=== PATIENT | female | born 1985 | race Caucasian/White ===

== ENCOUNTER → 2021-04-12 | Outpatient (CLI) | payer BC ==
[2021-04-12 18:27] LABS: Basophils # (A) 0.01 X 10*3/uL (0.00-0.10); Basophils % (A) 0.2 %; Eosinophils # (A) 0.04 X 10*3/uL (0.04-0.35); HCT 37.1 % (37.2-46.3); Immature Grans, Automated 0.2 %; Lymphocytes # (A) 1.56 X 10*3/uL (0.90-5.00); Lymphocytes % (A) 38.4 %; MCH 29.6 pg (27.0-32.0); MCHC 32.3 g/dL (32.0-37.0); MCV 91.6 fL (80.0-97.0); Mean Platelet Volume 11.5 fL (9.5-12.2); Monocytes # (A) 0.25 X 10*3/uL (0.20-1.00); Monocytes % (A) 6.2 %; NRBC Per 100 WBC 0 /100 WBCS (0.0-0.0); Neutrophils # (A) 2.19 X 10*3/uL (1.80-7.70); Platelet Count 199 X 10*3/uL (140-440); RBC 4.05 X 10*6/uL (4.10-5.20); RDW 12.1 % (11.5-14.5); WBC 4.06 X 10*3/uL (4.50-10.00)
== END | disposition home or self-care (01) ==
LOC: LABPAT 11:41
PROVIDERS: ATTEND Obstetrics & Gynecology
DX: Z30.09 Encounter for other general counseling and advice on contraception (principal)
CPT/HCPCS: 85025

== ENCOUNTER 2021-04-27 07:52 | Day surgery (SDC) | payer BC ==
[2021-04-22 16:15] VITALS: BMI 25.7
[~2021-04-27 07:52] MED LIST: LACTATED RINGERS 1,000 ML IV SCH; LIDOCAINE 1% (10MG/ML) FOR IV START INTRADERMA PRN; ONDANSETRON 4 MG/2 ML VIAL IVP ONE; Pre Op ABX Message 1 EACH MISC MISCELLANE ONE; SCOPOLAMINE 1.5MG/72HR PATCH TRANSDERM ONE
[2021-04-27] MEDS ORDERED: LIDOCAINE 1% INJ 10MG/ML (20 ML MDV) ONE (09:05)
[2021-04-27] MEDS ORDERED: NEOSTIGMINE 1 MG/ML 10 ML VIAL ONE (09:05)
[2021-04-27] MEDS ORDERED: MIDAZOLAM 2 MG/2 ML VIAL ONE (09:05)
[2021-04-27] MEDS ORDERED: GLYCOPYRROLATE 0.2 MG/ML 2 ML VIAL ONE (09:05)
[2021-04-27] MEDS ORDERED: KETOROLAC 15 MG/ML 1 ML VIAL ONE (09:05)
[2021-04-27] MEDS ORDERED: fentaNYL (PF) 50 MCG/ML 2 ML AMP ONE (09:05)
[2021-04-27] MEDS ORDERED: PROPOFOL 10 MG/ML 20 ML VIAL IV ONE (09:05)
[2021-04-27] MEDS ORDERED: ROCURONIUM 10 MG/ML (5 ML VIAL) IV ONE (09:05)
[2021-04-27] MEDS ORDERED: MIDAZOLAM 2 MG/2 ML VIAL IVP ONE (09:07)
[2021-04-27] MEDS ORDERED: BUPIVACAIN-EPI 0.25%-1:200,000 30 ML VIAL SQ ONE ×2 (09:16→09:50)
--- NOTE | 2021-04-27 10:05 | P.OP ---
Date of Procedure: 04/27/21 Preoperative Diagnosis: Undesired fertility Postoperative Diagnosis: Normal-appearing female pelvic anatomy Procedure(s) Performed: Laparoscopic bilateral salpingectomy Anesthesia: RONEN Surgeon: Ju[facility] Coordinator #1: Christina Saeed Estimated Blood Loss (ml): 10 IV fluids (ml): 700 Urine output (ml): 200 Pathology: other (Bilateral fallopian tubes) Condition: stable Disposition: PACU Operative Findings: Normal-appearing ovaries bilaterally, no evidence of pelvic adhesions or endometriosis. Description of Procedure: Patient is brought to the operating suite where a general anesthetic is administered without difficulty. She's placed in the dorsal lithotomy position. The cervix, vagina, abdomen are all prepped and draped in usual sterile fashion. Urine hCG is negative. The appropriate timeout was performed to assure proper patient and procedural identification. Bladder is drained for approximately 200 mL of clear yellow urine utilizing a red Peter catheter. Speculum was placed into the vagina. Anterior lip of the cervix is grasped with an Allis clamp and this was attached to a small acorn cannula placed on the ectocervical os. Speculum is removed. Attention is now drawn to the abdominal cavity. An infraumbilical incision is made. Veress needle is placed and placement is checked with hanging drop technique. Abdomen is insufflated under low filling pressures of approximate 4-6 mmHg for a total of 3.8 L of CO2 gas. Veress needle is removed. Trochars placed and placement is atraumatic. Uterus is now tucked deep into the cavity. A second incision is made in the right lower quadrant and a second trocar is placed under direct visualization, atraumatic entry. A third incision is placed in the left lower quadrant, trocar is placed and again entry is atraumatic. The uterus is now placed and anteverted lateral traction. The right fallopian tube is grasped and stretched. The LigaSure is used across the mesal salpinx and the right fallopian tube is removed. Hemostasis is excellent. It is taken through the trocar. The same procedure is carried out contralaterally on the left fallopian tube. LigaSure is used through the mesal salpinx to the base of the tube and the tube is brought out through the trocar. Hemostasis is excellent. Bilateral ovaries are within normal limits to inspection. The CO2 gas was allowed to diffuse. The trochars are removed under direct visualization and the fascial defects are clean and dry. 4-0 undyed Monocryl is used in a subcuticular fashion to close the 3 small skin incisions. They are injected with a total of 10 mL of quarter percent Marcaine to aid in analgesia. The patient is given Toradol. Dressings are applied to the 3 small wounds. Instrumentation is removed from the vagina. Cervix is clean and dry. All sponge needle and enhancement counts are correct. Total estimated blood loss 10 mL's. Patient is brought back to the recovery room in excellent condition with stable vital signs including blood pressure 125/73, pulse 77. She will follow- up with me in the office in 2 weeks.
[2021-04-27] MEDS: fentaNYL (PF) 50 MCG/ML 2 ML AMP IV PRN ×2 (10:20→10:25)
[2021-04-27 10:23] VITALS: TEMP 98.6
[2021-04-27] MEDS ORDERED: MEPERIDINE 50 MG/ML SYRINGE IVP ONE ×2 (10:30→10:35)
[2021-04-27] MEDS ORDERED: LACTATED RINGERS 1,000 ML IV ONE ×2 (10:41)
[2021-04-27] MEDS ORDERED: HYDROcodone/APAP 5-325MG 1 EACH TAB ONE (12:21)
[2021-04-27] MEDS ORDERED: HYDROcodone/APAP 5-325MG 1 EACH TAB PO ONE (12:24)
[2021-04-27 12:26] VITALS: RESP 16
[2021-04-27 12:55] VITALS: BP 96/63; PULSE 74
== END 2021-04-27 13:05 | disposition home or self-care (01) ==
LOC: OR 07:52
PROVIDERS: ATTEND Obstetrics & Gynecology
DX: Z30.2 Encounter for sterilization (principal)
CPT/HCPCS: 58661; 81025; 88302; J2250; J2710; J2175; J2405; J2001; J3010; J1885; J2704

== ENCOUNTER → 2021-09-06 | Outpatient (CLI) | payer BC ==
[2021-09-06 22:40] LABS: Basophils # (A) 0.01 X 10*3/uL (0.00-0.10); Basophils % (A) 0.2 %; Eosinophils # (A) 0.06 X 10*3/uL (0.04-0.35); Eosinophils % (A) 1.2 %; HCT 36.8 % (37.2-46.3); HGB 11.6 g/dL (12.0-15.0); Immature Grans, Automated 0.4 %; Lymphocytes # (A) 1.84 X 10*3/uL (0.90-5.00); Lymphocytes % (A) 35.7 %; MCHC 31.5 g/dL (32.0-37.0); Mean Platelet Volume 11.2 fL (9.5-12.2); Monocytes # (A) 0.32 X 10*3/uL (0.20-1.00); Monocytes % (A) 6.2 %; NRBC Per 100 WBC 0 /100 WBCS (0.0-0.0); Neutrophils % (A) 56.3 %; Platelet Count 198 X 10*3/uL (140-440); RDW 12.4 % (11.5-14.5); WBC 5.15 X 10*3/uL (4.50-10.00)
== END | disposition home or self-care (01) ==
LOC: LABPAT 15:09
PROVIDERS: ATTEND Obstetrics & Gynecology
DX: Z01.812 Encounter for preprocedural laboratory examination (principal); N92.0 Excessive and frequent menstruation with regular cycle
CPT/HCPCS: 85025

== ENCOUNTER 2021-09-14 06:54 | Day surgery (SDC) | payer BC ==
[2021-09-09 13:23] VITALS: BMI 23.9
[~2021-09-14 06:54] MED LIST changes: -SCOPOLAMINE 1.5MG/72HR PATCH TRANSDERM ONE
[2021-09-14] MEDS ORDERED: fentaNYL (PF) 50 MCG/ML 2 ML AMP IV PRN (07:00)
[2021-09-14] MEDS ORDERED: SCOPOLAMINE 1 MG/72 HR PATCH TRANSDERM ONE (07:13)
[2021-09-14] MEDS ORDERED: MIDAZOLAM 2 MG/2 ML VIAL ONE (08:01)
[2021-09-14] MEDS ORDERED: KETOROLAC 15 MG/ML 1 ML VIAL ONE (08:01)
[2021-09-14] MEDS ORDERED: PROPOFOL 10 MG/ML 20 ML VIAL IV ONE (08:01)
[2021-09-14] MEDS ORDERED: LIDOCAINE 2% INJ 20 MG/ML (2 ML VIAL) ONE (08:01)
[2021-09-14] MEDS ORDERED: fentaNYL (PF) 50 MCG/ML 2 ML AMP ONE (08:01)
[2021-09-14 08:42] VITALS: TEMP 97.3
--- NOTE | 2021-09-14 08:43 | P.OP ---
Date of Procedure: 09/14/21 Preoperative Diagnosis: Menorrhagia Postoperative Diagnosis: Same, normal-appearing endometrial cavity Procedure(s) Performed: Hysteroscopy, NovaSure endometrial ablation Anesthesia: MATILDEA Surgeon: Juana Lee Estimated Blood Loss (ml): 5 IV fluids (ml): 600 Urine output (ml): 500 Pathology: none sent Condition: stable Disposition: PACU Operative Findings: Essentially normal-appearing endometrial cavity Description of Procedure: Patient is brought to the operating suite where a general anesthetic is administered without difficulty per the anesthesia Department. She's placed in the dorsal lithotomy position. The abdomen, perineal body, cervix and vagina are prepped and draped in usual sterile fashion. The appropriate timeout is performed to assure proper patient and procedural identification. Bladder is drained for approximately 500 mL of clear yellow urine. Examination under anesthesia reveals a small anteverted uterus, negative adnexa bilaterally. Weighted speculum was placed into the vagina. Anterior lip of the cervix is grasped with an Allis clamp. Uterus sounds to a depth of 7.5 cm in the anteverted position. The cervix is gently and systematically dilated using Hanks dilators. Hysteroscope was placed and the cavity is infused with sterile saline. Bilateral ostia are noted, no polyps, fibroids, septa, or defects. Hysteroscope was removed. The NovaSure wand is placed and seated properly. Uterine length of 5.5 cm, width of 3.9 cm is calibrated. Machine is properly enabled. For 48 seconds and a power of 118 W the procedure is carried out. When the machine shuts off, the wand is reduced and removed. Hysteroscope was then again gently placed and the cavity is noted to be uniformly blanched. Anterior lip of the cervix is clean and dry. All sponge and instrument counts are correct. Patient is given Toradol prior to leaving the operative suite. She is sent to the recovery room in very good condition with stable vital signs including a pulse of 64, blood pressure 1 5/65, 99% O2 saturation. She will follow-up with me in the office in 2 weeks. Written discharge instructions are provided.
[2021-09-14 08:52] VITALS: RESP 16
[2021-09-14] MEDS ORDERED: HYDROmorphone 0.5 MG/0.5 ML SYRINGE IVP ONE (09:52)
[2021-09-14 10:36] VITALS: BP 100/65; PULSE 67
== END 2021-09-14 10:33 | disposition home or self-care (01) ==
LOC: OR 06:54
PROVIDERS: ATTEND Obstetrics & Gynecology
DX: N92.0 Excessive and frequent menstruation with regular cycle (principal); M19.90 Unspecified osteoarthritis, unspecified site; Z88.0 Allergy status to penicillin; Z88.5 Allergy status to narcotic agent; Z88.8 Allergy status to other drugs, medicaments and biological substances; Z91.011 Allergy to milk products; Z91.018 Allergy to other foods; Z91.09 Other allergy status, other than to drugs and biological substances; Z88.1 Allergy status to other antibiotic agents; Z87.891 Personal history of nicotine dependence; Z80.41 Family history of malignant neoplasm of ovary
CPT/HCPCS: 81025; 58563; J2250; J2405; J3010; J1885; J2704; J1170; J2001